=== PATIENT | male | born 1960 | race Caucasian/White ===

== ENCOUNTER → 2017-07-16 | Outpatient (CLI) | payer OTHER ==
[~2017-07-16] MED LIST: LACT10SO30 PO; LEVO50TA6 PO; LSX20 PO; POLY1SOL6 OPB; POLY3350 PO; SENN1TAB80 PO; VALP250C3 PO
--- NOTE | 2017-07-16 11:35 | DIAGNOSTIC IMAGING REPORT ---
KUB HISTORY: Screening exam. History of nephrolithiasis. Z00.00 [facility] [id number] COMPARISON: CT abdomen and pelvis 12/05/2015. FINDINGS: The bowel gas pattern is non-obstructive. There is no organomegaly. Renal shadows are obscured by large while of colonic gas. Previously noted nephrolithiasis not identified. No ureteral calculi are seen. No pneumoperitoneum or pneumatosis. Multilevel degenerative changes of the spine noted in addition to degenerative changes of the bilateral femoral acetabular joints. Prominent periarticular ossifications are noted about the bilateral hips which appear unchanged from comparison CT study. The bones appear to be mildly demineralized. IMPRESSION: 1. Gaseous distention of the colon with nonobstructive bowel gas pattern. 2. Renal shadows are obscured without renal or ureteral calculi identified. Electronically signed by: Roland Wagner M.D. 07/16/2017 11:34 AM Dictated Date/Time: 07/16/2017 11:31 AM
== END | disposition home or self-care (01) ==
LOC: C.RAD 11:01
PROVIDERS: ATTEND Urology
DX: Z00.00 Encounter for general adult medical examination without abnormal findings (principal); K63.89 Other specified diseases of intestine

== ENCOUNTER 2017-12-30 13:45 | Emergency (ER) | payer OTHER ==
[~2017-12-30] VITALS: Ht 177.8 cm; Wt 105.0 kg
[2017-12-30 13:48] VITALS: TEMP 36.4; O2SAT 98; Ht 177.8 cm; Wt 105.0 kg
[2017-12-30 14:23] LABS: BASO % 0.2 %; BASO ABS # 0.01 K/uL (0-0.2); EOS % 1.5 %; EOS ABS # 0.09 K/uL (0-0.5); HEMATOCRIT 42.9 % (42-52); HEMOGLOBIN 13.5 g/dL (14.0-18.0); IG# 0.02 K/uL (0.00-0.02); LYMPH % 22.2 %; LYMPH ABS # 1.37 K/uL (1.2-3.4); MEAN CELL VOLUME 91.1 fL (80-100); MEAN CORPUSCULAR HEMOGLOBIN 28.7 pg (25-34); MEAN CORPUSCULAR HGB CONC 31.5 g/dl (32-36); MONO % 6.8 %; MONO ABS # 0.42 K/uL (0.11-0.59); NEUT ABS # 4.26 K/uL (1.4-6.5); PLATELET COUNT 161 K/uL (130-400); RED CELL DISTRIBUTION WIDTH CV 15.4 % (11.5-14.5); RED CELL DISTRIBUTION WIDTH SD 51.6 fL (36.4-46.3); WHITE BLOOD COUNT 6.17 K/uL (4.8-10.8)
[2017-12-30] MEDS ORDERED: FERR325T5 PO (14:25)
[2017-12-30] MEDS ORDERED: GABA-112 PO (14:25)
[2017-12-30] MEDS ORDERED: LACT10CA3 PO (14:25)
[2017-12-30] MEDS ORDERED: CRS/10 PO (14:27)
[2017-12-30] MEDS ORDERED: POLY1SOL6 OP (14:27)
[2017-12-30] MEDS ORDERED: TOPI50TA16 PO (14:27)
[2017-12-30] MEDS ORDERED: CYAN100T PO (14:27)
[2017-12-30] MEDS ORDERED: TRIM100T PO (14:27)
[2017-12-30 14:38] LABS: CALCIUM 8.9 mg/dl (8.5-10.1); CREATININE 0.84 mg/dl (0.60-1.40); POTASSIUM 4.1 mmol/L (3.5-5.1)
[2017-12-30] MEDS ORDERED: CEFTRIAXONE SOD INJ 1 GM ADDVIAL IV STA (15:29)
[2017-12-30] MEDS ORDERED: SULF800T23 PO (15:57)
[2017-12-30 16:19] VITALS: BP 111/66; PULSE 61
--- NOTE | 2017-12-30 17:11 | EMERGENCY ROOM VISIT NOTE ---
History Report prepared by Laxmi: Edil Varghese Under the Supervision of: Dr. Rasta Flood D.O. First contact with patient: 13:53 Chief Complaint: HEMATURIA Stated Complaint: URINATING BLOOD History of Present Illness The patient is a 57 year old male who presents to the Emergency Room with complaints of hematuria that was first noticed yesterday after the patient had his suprapubic catheter replaced. The patient presents to the department with two caregivers from [facility]. They state that their [employer] DIRECT[employer] changed the catheter yesterday and was concerned that "the balloon inflated in the patient's urethra." The catheter is suprapubic. They note that the patient has blood coming out of the tip of the penis as well. They state the patient is not making any complaints. Source of History: patient Onset: Yesterday Position: other () Quality: other (Hematuria) Timing: other (Constant bloody urine in ramirez) Associated Symptoms: No abdominal pain Review of Systems See HPI for pertinent positives & negatives. A total of 10 systems reviewed and were otherwise negative. Past Medical & Surgical Medical Problems: (1) Hx of C4 disc fracture (2) Paralysis of both lower limbs Social History Smoking Status: Never Smoker Alcohol Use: none Drug Use: none Marital Status: single Housing Status: other Occupation Status: unemployed Current/Historical Medications Scheduled Cyanocobalamin (Vitamin B-12), Unknown Dose PO DAILY Ferrous Sulfate (Ferrous Sulfate), 325 MG PO BID Gabapentin (Neurontin), 100 MG PO BID Lactobacillus-Inulin (Culturelle), Unknown Dose PO QD Levothyroxine Sodium (Levothyroxine Sodium), 50 MCG PO DAILY Rosuvastatin Calcium (Crestor), 10 MG PO HS Sulfamethoxazole-Trimethoprim (Bactrim Ds 800MG/160MG), 1 TAB PO BID Topiramate (Topamax), 50 MG PO BID Trimethoprim (Proloprim), 100 MG PO QD Valproic Acid (Valproic Acid), 500 MG PO BID Miscellaneous Medications Polyethylene Glycol-Propylene (Systane Ultra), 1 DROPS OP Allergies Coded Allergies: No Known Allergies (Unverified , 12/30/17) Physical Exam Vital Signs Date Time Temp Pulse Resp B/P (MAP) Pulse Ox O2 Delivery O2 Flow Rate FiO2 12/30/17 16:19 61 16 111/66 Room Air 12/30/17 13:48 36.4 66 18 108/73 98 Room Air Physical Exam GENERAL: Sitting up in chair, alert, well appearing, well nourished, no distress , non-toxic EYE EXAM: normal conjunctiva. OROPHARYNX: no exudate, no erythema, lips, buccal mucosa, and tongue normal and mucous membranes are moist NECK: supple, no nuchal rigidity, no adenopathy, non-tender LUNGS: Clear to auscultation. Normal chest wall mechanics HEART: no murmurs, S1 normal and S2 normal ABDOMEN: Suprapubic catheter is in place, with pink tinged urine draining, abdomen soft, non-tender, normo-active bowel sounds, no masses, no rebound or guarding. BACK: Back is symmetrical on inspection and there is no deformity, no midline tenderness, no CVA tenderness. SKIN: no rashes and no bruising UPPER EXTREMITIES: upper extremities are grossly normal. LOWER EXTREMITIES: No pitting edema. NEURO EXAM: Alert, at baseline per caretakers. : There is granulation tissue at the ventral aspect of the tip of the penis. BEDSIDE US: Shows that the Ramirez is in place with the Ramirez balloon inflated in bladder. Medical Decision & Procedures Laboratory Results 12/30/17 14:10 Red Blood Count 4.71, Mean Corpuscular Volume 91.1, Mean Corpuscular Hemoglobin 28.7, Mean Corpuscular Hemoglobin Concent 31.5, Mean Platelet Volume 9.0, Neutrophils (%) (Auto) 69.0, Lymphocytes (%) (Auto) 22.2, Monocytes (%) (Auto) 6.8, Eosinophils (%) (Auto) 1.5, Basophils (%) (Auto) 0.2, Neutrophils # (Auto) 4.26, Lymphocytes # (Auto) 1.37, Monocytes # (Auto) 0.42, Eosinophils # (Auto) 0.09, Basophils # (Auto) 0.01 12/30/17 14:10 Test 12/30/17 14:00 12/30/17 14:10 Urine Color RED Urine Appearance CLOUDY (CLEAR) Urine pH 7.5 (4.5-7.5) Urine Specific [place] 1.015 (1.000-1.030) Urine Protein 1+ (NEG) Urine Glucose (UA) NEG (NEG) Urine Ketones NEG (NEG) Urine Occult Blood 3+ (NEG) Urine Nitrite POS (NEG) Urine Bilirubin NEG (NEG) Urine Urobilinogen NEG (NEG) Urine Leukocyte Esterase MODERATE (NEG) Urine WBC (Auto) >30 /hpf (0-5) Urine RBC (Auto) >30 /hpf (0-4) Urine Hyaline Casts (Auto) 1-5 /lpf (0-5) Urine Epithelial Cells (Auto) 0-5 /lpf (0-5) Urine Bacteria (Auto) NEG (NEG) Urine Yeast (Auto) (NONE PRSENT) White Blood Count 6.17 K/uL (4.8-10.8) Red Blood Count 4.71 M/uL (4.7-6.1) Hemoglobin 13.5 g/dL (14.0-18.0) Hematocrit 42.9 % (42-52) Mean Corpuscular Volume 91.1 fL (80-100) Mean Corpuscular Hemoglobin 28.7 pg (25-34) Mean Corpuscular Hemoglobin Concent 31.5 g/dl (32-36) Platelet Count 161 K/uL (130-400) Mean Platelet Volume 9.0 fL (7.4-10.4) Neutrophils (%) (Auto) 69.0 % Lymphocytes (%) (Auto) 22.2 % Monocytes (%) (Auto) 6.8 % Eosinophils (%) (Auto) 1.5 % Basophils (%) (Auto) 0.2 % Neutrophils # (Auto) 4.26 K/uL (1.4-6.5) Lymphocytes # (Auto) 1.37 K/uL (1.2-3.4) Monocytes # (Auto) 0.42 K/uL (0.11-0.59) Eosinophils # (Auto) 0.09 K/uL (0-0.5) Basophils # (Auto) 0.01 K/uL (0-0.2) RDW Standard Deviation 51.6 fL (36.4-46.3) RDW Coefficient of Variation 15.4 % (11.5-14.5) Immature Granulocyte % (Auto) 0.3 % Immature Granulocyte # (Auto) 0.02 K/uL (0.00-0.02) Anion Gap 7.0 mmol/L (3-11) Est Creatinine Clear Calc Drug Dose 117.7 ml/min Estimated GFR () 112.7 Estimated GFR (Non- 97.2 BUN/Creatinine Ratio 22.1 (10-20) Calcium Level 8.9 mg/dl (8.5-10.1) Laboratory results per my review. Medications Administered Medications (Trade) Dose Ordered Sig/Lizzy Route Start Time Stop Time Status Last Admin Dose Admin Ceftriaxone Sodium (Rocephin Inj) 1 gm NOW STAT IV 12/30/17 15:29 12/30/17 15:30 DC 12/30/17 16:05 1 GM Procedure BEDSIDE US: Shows that the Ramirez is in place with the Ramirez balloon inflated. ED Course ED COURSE: Vital signs were reviewed and showed normal vitals. The patients medical record was reviewed The above diagnostic studies were performed and reviewed. ED treatments and interventions as stated above. 1355: The patient was evaluated in room C12B. A complete history and physical examination was performed. 1556: Upon reevaluation, the patient is resting in bed. I discussed my findings with the patient and he understands and agrees with the treatment plan. Based on the patients age, coexisting illnesses, exam and lab findings the decision to treat as an outpatient was made. The patient remained stable while under my care. The patient appeared well at the time of discharge. Medical Decision Differential diagnoses includes but is not limited to appendicitis, diverticulitis, small bowel obstruction, malignancy, hernia, urinary tract infection, torsion, perforation, trauma, infectious. Patient is a 57-year-old male who presents to ER with suprapubic catheter that was replaced by [employer]CTS DIRECTOR at the facility yesterday. Urine is pink tinged. Ramirez on bedside ultrasound does appear to be in place. CBC along with BMP is unremarkable. UA does suggest UTI. Patient was given IV Rocephin. Already has a prescription for Levaquin. Encouraged to continue the Levaquin prescription and not start the Bactrim although this was sent to pharmacy. Discussed with urology as they sent the patient. They are agreeable with the workup and will follow him up as an outpatient. Caretakers were updated bedside and discharged follow-up PCP. Discussed with Pt concerning signs and symptoms to watch out for. Pt was instructed to follow up with their PCP and discussed with the patient their option to return to the ED at anytime for persistent or worsening symptoms. The appropriate anticipatory guidance and out- patient management, including indications for return to the emergency department , were explained at length to the patient and understood. Medication Reconcilliation Current Medication List: was personally reviewed by me Blood Pressure Screening Patient's blood pressure: Normal blood pressure Impression Primary Impression: Hematuria Additional Impression: UTI (urinary tract infection) Scribe Attestation The scribe's documentation has been prepared under my direction and personally reviewed by me in its entirety. I confirm that the note above accurately reflects all work, treatment, procedures, and medical decision making performed by me. Departure Information Dispostion Home / Self-Care Prescriptions Sulfamethoxazole-Trimethoprim (Bactrim Ds 800MG/160MG) 1 Tab Tab 1 TAB PO BID, #14 TAB Prov: Rasta Flood, DO 12/30/17 Referrals Jonatan Bowman M.D. (PCP) Forms HOME CARE DOCUMENTATION FORM, IMPORTANT VISIT INFORMATION, WORK / SCHOOL INSTRUCTIONS Patient Instructions My [facility] Additional Instructions Please follow up with your primary care doctor with in the next 24 hours. Any worsening of your symptoms, please return to the ED immediately. This includes any fevers greater than 100.4, worsening pain, chest pain, shortness breath, persistent nausea, vomiting, unable to eat or drink, or any other concerning signs or symptoms from your standpoint. Please take antibiotics as prescribed. Please take Bactrim as prescribed. Please make sure you follow-up with urology within the next 3 days. CBC along with BMP will was unremarkable. UA shows nitrates, leuks and white cells suggesting a UTI. Problem Qualifiers Primary Impression: Hematuria Hematuria type: unspecified type Qualified Codes: R31.9 - Hematuria, unspecified Additional Impression: UTI (urinary tract infection) Urinary tract infection type: acute cystitis Hematuria presence: with hematuria Qualified Codes: N30.01 - Acute cystitis with hematuria
== END 2017-12-30 16:37 | disposition home or self-care (01) ==
LOC: C.EDB 13:45 → C.EDC 16:37
DX: N39.0 Urinary tract infection, site not specified (principal); G82.20 Paraplegia, unspecified; Z79.899 Other long term (current) drug therapy